=== PATIENT | male | born 1980 | race Hispanic/Latino ===

== ENCOUNTER 2022-01-06 11:54 | Emergency (ER) | payer SELFPAY ==
[2022-01-06] MEDS ORDERED: predniSONE 20 MG TAB ONE (13:11)
[2022-01-06] MEDS ORDERED: Ketorolac Tromethamine 30 MG/ML VIAL ONE (13:11)
== END 2022-01-06 15:29 | disposition home or self-care (01) ==
LOC: ERS 11:54
DX: M79.671 Pain in right foot (principal); I10 Essential (primary) hypertension; Z87.891 Personal history of nicotine dependence; Z79.82 Long term (current) use of aspirin
CPT/HCPCS: 96372; J1885; J7512